=== PATIENT | female | born 1955 | race Caucasian/White ===

== ENCOUNTER 2016-08-07 09:43 | Day surgery (SDC) | payer BC ==
--- NOTE | 2016-08-07 07:26 | History and Physical Report ---
DATE OF EVALUATION: 08/07/2016. CHIEF COMPLAINT AND HISTORY OF CHIEF COMPLAINT: This patient presents with a post cervical laminectomy radiculitis. She had a spinal cord stimulator trial conducted on 06/04/2016 with 75 to 90% pain control. Due to the failure of all therapies and the success of the stimulator trial she presents today for implantation of a permanent system. PAST MEDICAL HISTORY: Hypertension. REVIEW OF SYSTEMS: The patient seems appropriate and in no acute distress. The remainder of the systems review shows glasses, headaches, blood pressure issues, degenerative arthritis, irritable bowel syndrome. SOCIAL HISTORY: Noncontributory. FAMILY HISTORY: Hypertension. PAST SURGICAL HISTORY: Cervical spine fusion, pump implant and removal. ALLERGIES: None. MEDICATIONS ON ADMISSION: To be provided. PHYSICAL EXAMINATION: General: Height is 5 feet, 4 inches. Weight is 130 pounds. Vital Signs: Unavailable. HEENT: Within normal limits. Lungs: Clear. Heart: Regular rate and rhythm. Abdomen: Nontender. Musculoskeletal: Examination of the musculoskeletal system shows diffuse tenderness throughout the cervical spine. Range of does cause pain toward the neck and shoulders, somewhat more right than left. Sensory yanes are intact. Neurologic: Cranial nerves are intact. IMPRESSIONS: 1. POSTCERVICAL LAMINECTOMY SYNDROME, ICD10 CODE M96.1. 2. CERVICAL RADICULITIS, ICD10 CODE M54.13. PLANS: The patient is here for implantation of a permanent spinal cord stimulator based upon the trial. The procedure will be considered outpatient, although an overnight stay will be evaluated. She has been advised of the potential risks, side effects, and complications including dural puncture, nerve root injury, and spinal cord injury. The procedure will be considered outpatient, although an overnight stay will be evaluated. Bowen Mead D.O. Date Time JOB NUMBER: [id number] cc: Ellie Stiles
[~2016-08-07 09:43] MED LIST: ACETAMINOPHEN 1000MG/100 ML PREMIX IV ONE; CEFAZOLIN 2 Gram 50 ML IVPB ONE; FAMOTIDINE 20MG TABLET PO ONE; MECLIZINE 25 MG TABLET PO ONE; METOCLOPRAMIDE 10 MG TABLET PO ONE
[2016-08-07] MEDS ORDERED: LIDOCAINE 2% MDV (20MG/ML) 20ML VIAL IV ONE (14:00)
[2016-08-07] MEDS ORDERED: *PACU ONLY* KETAMINE HCL 10 MG/ML (20ML) VIAL IV ONE (14:00)
[2016-08-07] MEDS ORDERED: LABETALOL HCL 5MG/ML, 20ML VIAL SIVP ONE (14:00)
[2016-08-07] MEDS ORDERED: FENTANYL PF 100MCG/2ML VIAL IV ONE ×2 (14:00→16:18)
[2016-08-07] MEDS ORDERED: PROPOFOL 10 MG/ML VIAL IV ONE (14:00)
[2016-08-07] MEDS ORDERED: MIDAZOLAM HCL 2MG/2ML VIAL IV ONE (14:00)
[2016-08-07] MEDS ORDERED: METOCLOPRAMIDE 10 MG TABLET PO PRN (15:44)
[2016-08-07] MEDS ORDERED: TEMAZEPAM 15 MG CAPSULE PO PRN ×2 (15:44)
[2016-08-07] MEDS ORDERED: METOCLOPRAMIDE HCL 10 MG/2 ML VIAL IVP PRN (15:44)
[2016-08-07] MEDS ORDERED: HYDROMORPHONE HCL 1 MG/ML CPJ IM PRN (15:44)
[2016-08-07] MEDS ORDERED: HYDROMORPHONE HCL 2 MG/ML VIAL IM PRN (15:44)
[2016-08-07] MEDS ORDERED: ACETAMINOPHEN 325 MG TAB PO PRN ×2 (15:44)
[2016-08-07] MEDS ORDERED: DIPHENHYDRAMINE HCL 25 MG CAPSULE PO PRN ×2 (15:44)
[2016-08-07] MEDS ORDERED: DIPHENHYDRAMINE HCL IV 50 MG/ML VIAL IVP PRN ×2 (15:44)
[2016-08-07] MEDS ORDERED: AL HYDROX/MAG HYDROX 30ML UD PO PRN (15:44)
[2016-08-07] MEDS ORDERED: OXYCODONE/APAP 10MG-325MG TABLET PO PRN ×2 (15:44)
[2016-08-07] MEDS ORDERED: SENNOSIDES/DOCUSATE SODIUM UD CAPSULE PO PRN ×2 (15:44)
[2016-08-07] MEDS ORDERED: HYDROCODONE/APAP 7.5/325MG TABLET PO PRN ×2 (15:44)
[2016-08-07] MEDS ORDERED: LIDOCAINE 1% W/EPI 1:200,000 MPF 30ML SQ ONE (16:18)
[2016-08-07] MEDS ORDERED: BUPIVACAINE 0.5% W/EPI MPF 30 ML VIAL IVP ONE (16:18)
[2016-08-07] MEDS ORDERED: CEFAZOLIN 1G VIAL IM ONE (16:18)
[2016-08-07] MEDS: CEFAZOLIN 2 Gram 50 ML IVPB SCH (21:28)
[2016-08-07] MEDS ORDERED: VENLAFAXINE ER 75 MG CAPSULE PO SCH (22:00)
[2016-08-07] MEDS ORDERED: BUPROPION HCL 150 MG TAB.SR.12H PO SCH (22:00)
[2016-08-07] MEDS ORDERED: LISINOPRIL 20 MG TABLET PO SCH (22:00)
[2016-08-07] MEDS ORDERED: TIZANIDINE HCL 4 MG TABLET PO SCH (22:00)
[2016-08-07] MEDS ORDERED: 0.9 % SODIUM CHLORIDE 10ML SYR IVP SCH (22:00)
[2016-08-08] MEDS: CEFAZOLIN 2 Gram 50 ML IVPB SCH (04:49)
--- NOTE | 2016-08-13 14:37 | RADIOLOGY REPORT ---
EXAM: AP CERVICAL, THORACIC AND LUMBAR SPINE HISTORY: POST SPINAL CORD STIMULATOR IMPLANT. TECHNIQUE: AP views of the cervical, thoracic, and lumbar spine were obtained although the entire thoracic spine is not included on the views. Comparison: AP spine 10/14/12. FINDINGS: There is a battery pack in the left mid abdomen. The two wires extend up to the mid cervical level at the approximate C5 level. These are new compared to the prior study with previously seen wires apparently having been removed in the interval. Plate and screw fixation device overlying the lower cervical spine again noted. There is some new skin type joe in place at the cervicothoracic junction and adjacent to the battery pack in the left mid abdomen. Lumbar curve to the right. The exact level of the superior extent of the wires could be more accurately determined with a lateral cervical spine film if clinically desired. IMPRESSION: THE WIRES EXTEND UP TO THE APPROXIMATE C5 LEVEL. JOB NUMBER: [id number] MTDD
--- NOTE | 2016-08-14 16:11 | Operative Note ---
DATE OF SURGERY: 08/07/2016 PREOPERATIVE DIAGNOSES: 1. Post cervical laminectomy syndrome ICD10 code, M6.12. 2. Cervical radiculitis ICD10 code M54.13. 3. Two cervical peripheral stimulators nonfunctional, with internal generator. 4. Right inner costal peripheral nerve stimulator nonfunctional. OPERATION: 1. Incision subsection and removal of 2 subcutaneously placed peripheral nerve stimulators cervical spine. 2. Incision subsection removal of indwelling intercostal peripheral nerve stimulator right. 3. Fluoroscopic-guided epidural access T1-2, placement of spinal cord stimulator lead 1, a [employer] 16, 6 electrodes position left C4. 4. Complex cancer program coordinator 1, 20 minutes. 5. Fluoroscopic-guided epidural access T2-3, placement of spinal cord stimulator lead 2, a [employer] In[employer]ion 16, 6 electrodes position right C4. 6. Complex programming of lead 2, 20 minutes. 7. Incision and subsection and anchoring of lead 1 and lead 2 to deep fascia, using [employer] locking anchor. 8. Incision revision of left posterior gluteal margin generator pouch for a previous peripheral nerve stimulator. 9. Tunneling between stimulator pouch and generator pouch, placement and extending of each lead in the generator pouch, each lead interfaced with bifurcate extension, each bifurcate extension interfaced to generator. 10. Closure of all incisions with Vicryl for fascia and joe for skin. 11. Complex programming internal generator, recovery room 20 minutes. SURGEON: Bowen Mead DO Anesthesia: Local sedation. Anesthesia Provider: Sienna Robbins CRNA Indication: This patient presents with a history of post cervical laminectomy radiculitis. She has a 2 peripheral nerve stimulator for her neck and a single peripheral nerve stimulator for the right intercostal. Over the years, they have become nonfunctional, a single internal generator driving the 3 leads. She is here for removal, and after successful completion of a spinal cord stimulator trial with 75-90% pain control, she is here for removal and replacement with a spinal cord stimulator. PROCEDURE: Intravenous line, vital sign monitoring, IV sedation, sterile prep and draped in sterile technique. The patient positioned prone. The incisional site for the 2 peripheral stimulators, 1 left and 1 right of midline, infiltrated, incision made and subcutaneous dissection was conducted to the peripheral stimulator; it was removed from its anchor and removed intact. The right intercostal peripheral nerve stimulator incision was identified and infiltrated. An incision made and subcutaneous dissection was conducted to the peripheral stimulator for the intercostal and removed intact. The internal generator driving all 3 leads at the left posterior gluteal margin infiltrated, incision made and sub dissection was conducted to the generator. The generator and its connections removed intact. Antibiotic irrigation and Bovie for hemostasis. At T1 and T2-3 the skin infiltrated and then 2 separate epidural needles with lots of resistance to the epidural space. At T1-2 spinal cord stimulator lead 1 a [employer]ion 16 6 electrodes positioned left C4. Epidural access at 2-3 performed. Spinal cord stimulator lead 2, also [employer]ion 16 6 electrodes positioned right of the midline at C4. Complex cancer program coordinator 1 over 20 minutes, followed by complex program in lead 2 over 20 minutes, ultimately resulting in better stimulation across the neck and into her shoulder, the patient indicating we were in all the areas of the pain. She was given the option to implant or remove. She opted to implant. The skin infiltrated. Incision made and subcutaneous dissection was conducted in the supraspinous fascia. Each of the leads was then anchored to the fascia with a [employer] locking anchor. At the left posterior gluteal margin pouch previously for the generator removed, the pouch was revised and enlarged to accommodate the new generator. A tunneling tool was then used to connect or carry the leads into the generator pouch and then each lead was interfaced with bifurcate extension. Each bifurcate extension interfaced with generator. Antibiotic irrigation and Bovie for hemostasis. The generator was placed in the pouch and secured with nonabsorbable suture, the leads placed in the pouch, and then all incisions were closed with Vicryl in the fascia and joe for the skin. Appropriate dressings were placed. She was transported to the recovery room stable, showing no side effects from the procedure or the sedation. DISCHARGE INSTRUCTIONS: 1. The sites will remain clean and dry, no showering or bathing until she comes into the office for evaluation of the site in 5 to 7 days. 2. Standard medications only, including Levaquin the antibiotic 500 mg once a day for 14 days. 3. All other standard medications resumed. 4. She will be seen in the office in 5 to 7 days to evaluate the sites, until then she is to keep her activities low. 5. Diet is unchanged. All other instructions were provided, with numbers to contact given. She was then prepared for discharge. Bowen Mead DO CC: Ellie Corona
== END 2016-08-08 09:00 | disposition home or self-care (01) ==
LOC: SUR 09:43 → MEDSURG 15:23 → SUR 08-08 09:00
PROVIDERS: ATTEND Pain Medicine Interventional Pain Medicine
DX: T85.193A Other mechanical complication of implanted electronic neurostimulator, generator, initial encounter (principal); T85.191A Other mechanical complication of implanted electronic neurostimulator of peripheral nerve electrode (lead), initial encounter; M96.1 Postlaminectomy syndrome, not elsewhere classified; M54.13 Radiculopathy, cervicothoracic region
CPT/HCPCS: 72020; 95972; J0690; J2765; J3490